=== PATIENT | female | born 1995 ===

== ENCOUNTER 2016-04-30 20:11 | Emergency (ER) | payer BC, MEDICAID ==
[2016-04-30 20:33] VITALS: BP 122/72
[2016-04-30] MEDS ORDERED: BSS OPTH.SOL* BTL ONE (22:01)
[2016-04-30] MEDS ORDERED: Fluorescein Sodium TOPICAL* 1 MG TEST ONE (22:01)
[2016-04-30] MEDS ORDERED: Tetracaine 0.5% OPTH.SOL 4 ML* 1 DROP BTL ONE (22:02)
[2016-04-30] MEDS ORDERED: Sulfamethox/Trimethoprim DS 800/160* TAB PO ONE (22:13)
[2016-04-30] MEDS ORDERED: Polymyx/Trimethoprim OPTH* 10 ML BTL LEFT EYE ONE (22:14)
--- NOTE | 2016-04-30 22:19 | UC ---
Eye Complaint HPI - HPI Summary HPI Summary: swelling of left eyelid, noticed a little blister on underside of lid. No injury. No URI symptoms. No contacts. - History of Current Complaint Chief Complaint: UCEye Stated Complaint: LEFT EYE Time Seen by Provider: 04/30/16 22:05 Hx Obtained From: Patient Hx Last Menstrual Period: 04/28/16 Onset/Duration: Gradual Onset, Lasting Days - 2 Timing: Constant Severity Initially: Mild Severity Currently: Mild Character: Dull, Throbbing Associated Signs And Symptoms: Positive: Swelling. Negative: Photophobia, Drainage (Clear), Drainage (Purulent), Vision Impairment Bilateral, Vision Impairment Right, Vision Impairment Left, Fever - Risk Factors Penetrating Injury Risk Factor: Negative Globe Rupture Risk Factors: Negative Acute Glaucoma Risk Factors: Negative Optic Artery Occlusion Risk Factors: Negative - Allergies/Home Medications Allergies/Adverse Reactions: Allergies Allergy/AdvReac Type Severity Reaction Status Date / Time No Known Allergies Allergy Verified 04/30/16 20:32 PMH/Surg Hx/FS Hx/Imm Hx Previously Healthy: Yes - Surgical History Surgical History: Yes Surgery Procedure, Year, and Place: left knee surgery - Family History Known Family History: Positive: None - Social History Occupation: Student Lives: Alone Alcohol Use: Occasionally Substance Use Type: None Smoking Status (MU): Never Smoked Tobacco Review of Systems Constitutional: Negative Skin: Negative Eyes: Eye Redness ENT: Negative Respiratory: Negative Cardiovascular: Negative Gastrointestinal: Negative Genitourinary: Negative Motor: Negative Neurovascular: Negative Musculoskeletal: Negative Neurological: Negative Psychological: Negative All Other Systems Reviewed And Are Negative: Yes Physical Exam Triage Information Reviewed: Yes Appearance: Well-Appearing, No Pain Distress, Well-Nourished, Thin Vital Signs: Initial Vital Signs Temp 98.4 F 04/30/16 20:26 Pulse 60 04/30/16 20:26 Resp 14 04/30/16 20:26 BP 122/72 04/30/16 20:26 Pulse Ox 99 04/30/16 20:26 Eyes: Positive: Conjunctiva Clear, Other: - left lateral eyelid red, swollen, tender. On underside of upper lid there is a pointing abscess. No drainage. Neck exam: Normal Respiratory Exam: Normal Cardiovascular Exam: Normal Abdominal Exam: Normal Musculoskeletal Exam: Normal Neurological Exam: Normal Neurological: Positive: Fatigued Skin Exam: Normal Eye Complaint Course/Dx - Differential Dx/Diagnosis Provider Diagnoses: stye Discharge - Discharge Plan Condition: Stable Disposition: HOME Prescriptions: Sulfamethox/Trimethoprim DS* [Bactrim DS 800/160 TAB*] 1 tab PO BID #14 tab Patient Education Materials: Jeff (ED) Referrals: Josey Jones MD [Primary Care Provider] - Additional Instructions: WArm compresses will help. Use the eyedrops four times a day for 5 days, and take the oral antibiotic ( Bactrim) for a week. This will resolve, but your eyelid may stay swollen for quite a while.
== END 2016-04-30 22:27 | disposition home or self-care (01) ==
LOC: UCCORT 20:11
DX: H00.016 Hordeolum externum left eye, unspecified eyelid (principal)
CPT/HCPCS: 99213; A9270-GY; G0463

== ENCOUNTER 2016-09-01 19:15 | Emergency (ER) | payer BC, MEDICAID ==
[2016-09-01 21:24] VITALS: BP 118/67
--- NOTE | 2016-09-01 21:38 | UC ---
Skin Complaint HPI - HPI Summary HPI Summary: has bug bites on arms and back after house and dog sitting, was at an outdoor fire the night before she noticed the bites as well - History of Current Complaint Chief Complaint: UCSkin Time Seen by Provider: 09/01/16 21:27 Stated Complaint: SKIN ISSUE Hx Obtained From: Patient Hx Last Menstrual Period: AUG 04 2016 ?: No Onset/Duration: Sudden Onset, Lasting Days Timing: Constant Onset Severity: Mild Current Severity: Mild Pain Intensity: 2 Pain Scale Used: 0-10 Numeric - mostly itches Location: Diffuse Character: Redness, Raised Aggravating: Nothing Alleviating: Nothing Associated Signs & Symptoms: Positive: Negative Related History: Insect Bite/Sting - Allergy/Home Medications Allergies/Adverse Reactions: Allergies Allergy/AdvReac Type Severity Reaction Status Date / Time No Known Allergies Allergy Verified 09/01/16 21:13 Review of Systems Constitutional: Negative Skin: Rash - individual red raised papula, no drainage Eyes: Negative ENT: Negative Respiratory: Negative Cardiovascular: Negative Gastrointestinal: Negative Genitourinary: Negative Motor: Negative Neurovascular: Negative Musculoskeletal: Negative Neurological: Negative Psychological: Negative All Other Systems Reviewed And Are Negative: Yes PMH/Surg Hx/FS Hx/Imm Hx Previously Healthy: Yes - Surgical History Surgical History: Yes Surgery Procedure, Year, and Place: left knee surgery - Family History Known Family History: Positive: None - Social History Occupation: Student Lives: With Family Alcohol Use: Occasionally Substance Use Type: None Smoking Status (MU): Never Smoked Tobacco Physical Exam Triage Information Reviewed: Yes Appearance: Well-Appearing, No Pain Distress, Well-Nourished Vital Signs: Initial Vital Signs Temp 98.3 F 09/01/16 21:14 Pulse 69 09/01/16 21:14 Resp 18 09/01/16 21:14 BP 118/67 09/01/16 21:14 Pulse Ox 100 09/01/16 21:14 Vital Signs Reviewed: Yes Eye Exam: Normal Eyes: Positive: Conjunctiva Clear ENT Exam: Normal ENT: Positive: Normal ENT inspection, Hearing grossly normal, Pharynx normal, TMs normal. Negative: Nasal congestion, Nasal drainage, Tonsillar swelling, Tonsillar exudate, Trismus, Muffled/hoarse voice Dental Exam: Normal Neck exam: Normal Neck: Positive: Supple, Nontender, No Lymphadenopathy Respiratory Exam: Normal Respiratory: Positive: Chest non-tender, Lungs clear, Normal breath sounds, No respiratory distress, No accessory muscle use Cardiovascular Exam: Normal Cardiovascular: Positive: RRR, No Murmur, Pulses Normal, Brisk Capillary Refill Musculoskeletal Exam: Normal Musculoskeletal: Positive: Strength Intact, ROM Intact, No Edema Neurological Exam: Normal Neurological: Positive: Alert, Muscle Tone Normal Psychological Exam: Normal Skin Exam: Normal - red raised papula Skin: Positive: rashes Course/Dx - Course Course Of Treatment: soap and water wash, steroid cream benadryl, follow with pcp prn - Differential Diagnoses - Skin Complaint Differential Diagnoses: Local Allergic Reaction, Poison Mellissa, Poison [place] - Diagnoses Provider Diagnoses: Localized reaction to insect bite Discharge - Discharge Plan Condition: Stable Disposition: HOME Prescriptions: Triamcinolone 0.1% CREAM(NF) [Kenalog Cream 0.1%(NF)] 1 applic TOPICAL TID #1 tube Patient Education Materials: Diphenhydramine (By mouth), Triamcinolone (On the skin), Insect Bite or Sting (ED) Referrals: Julius Callaway MD [Primary Care Provider] - If Needed
== END 2016-09-01 21:47 | disposition home or self-care (01) ==
LOC: UCCORT 19:15
DX: S40.862A Insect bite (nonvenomous) of left upper arm, initial encounter (principal); S40.861A Insect bite (nonvenomous) of right upper arm, initial encounter; S20.462A Insect bite (nonvenomous) of left back wall of thorax, initial encounter; W57.XXXA Bitten or stung by nonvenomous insect and other nonvenomous arthropods, initial encounter; Y93.9 Activity, unspecified; Y92.9 Unspecified place or not applicable
CPT/HCPCS: 99212; G0463

== ENCOUNTER 2019-02-21 11:47 | Emergency (ER) | payer BC, MEDICAID ==
[2019-02-21 13:16] VITALS: BP 104/66
--- NOTE | 2019-02-21 13:23 | UC ---
Nausea/Vomiting/Diarrhea HPI - HPI Summary HPI Summary: 24-year-old female who started vomiting yesterday. The last time she vomited was 3 AM today. She denies any diarrhea. Today she just complains more of body aches. She is retaining fluids. - History of Current Complaint Chief Complaint: UCRespiratory Stated Complaint: VOMITING,COUGH,BODY ACHES Time Seen by Provider: 02/21/19 13:22 Hx Obtained From: Patient Hx Last Menstrual Period: 02/06/19 ?: No Onset/Duration: Sudden Onset Timing: Intermittent Episodes Lasting: Severity Initially: Moderate Severity Currently: Mild Pain Intensity: 6 Location: Diffuse Character: Dull, Cramping Aggravating Factor(s): Movement Alleviating Factor(s): Nothing Nausea/Vomiting Presence: Nauseated, Vomiting - Nausea and vomiting have subsided with the last time being at 3 AM today. Diarrhea Presence: No - Allergies/Home Medications Allergies/Adverse Reactions: Allergies Allergy/AdvReac Type Severity Reaction Status Date / Time No Known Allergies Allergy Verified 02/21/19 13:11 Home Medications: Home Medications NK [No Home Medications Reported] 02/21/19 [History Confirmed 02/21/19] PMH/Surg Hx/FS Hx/Imm Hx Previously Healthy: Yes - Surgical History Surgical History: Yes Surgery Procedure, Year, and Place: left knee surgery - Family History Known Family History: Positive: None - Social History Occupation: Employed Full-time Lives: With Family Alcohol Use: Occasionally Substance Use Type: None Smoking Status (MU): Never Smoked Tobacco Review of Systems All Other Systems Reviewed And Are Negative: Yes Gastrointestinal: Positive: Abdominal Pain - Patient states she has generalized abdominal discomfort which she thinks is from vomiting so many times. She denies any specific point tenderness., Vomiting, Nausea Is Patient Immunocompromised?: No Physical Exam Triage Information Reviewed: Yes Appearance: Well-Appearing, No Pain Distress, Well-Nourished Vital Signs: Initial Vital Signs Temp 99 F 02/21/19 13:12 Pulse 94 02/21/19 13:12 Resp 16 02/21/19 13:12 BP 104/66 02/21/19 13:12 Pulse Ox 99 02/21/19 13:12 Vital Signs Reviewed: Yes Eyes: Positive: Conjunctiva Clear ENT: Positive: Pharynx normal, TMs normal, Uvula midline, Other - Mucous membranes are moist. Neck: Positive: Supple, Nontender, No Lymphadenopathy Respiratory: Positive: Lungs clear, Normal breath sounds, No respiratory distress, No accessory muscle use Cardiovascular: Positive: RRR, No Murmur, Pulses Normal, Brisk Capillary Refill Abdomen Description: Positive: No Organomegaly, Soft, Other: - Patient has mild generalized abdominal soreness however no specific area of tenderness. No rigidity, rebound or guarding.. Negative: CVA Tenderness (R), CVA Tenderness (L ), Distended, Guarding, Hepatomegaly, McBurney's Point Tenderness, Splenomegaly Bowel Sounds: Positive: Present Musculoskeletal Exam: Normal Neurological Exam: Normal Psychological Exam: Normal Skin Exam: Normal Naus/Vom/Diarrhea Course/Dx - Course Course Of Treatment: Patient is comfortable here. I believe more of her discomfort today is from the vomiting she was doing. She states that she has never had any gastrointestinal illness which involves vomiting to the point where she was vomiting. 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 I advised her to stay home over the next 2 days and increase fluids and if she has any change in her abdominal discomfort or develops any specific area of abdominal pain she is to go to the emergency room for further treatment. - Differential Dx/Diagnosis Provider Diagnosis: Vomiting Condition At Discharge: Good Discharge ED - Sign-Out/Discharge Documenting (check all that apply): Patient Departure All imaging exams completed and their final reports reviewed: No Studies - Discharge Plan Condition: Good Disposition: HOME Patient Education Materials: Acute Nausea and Vomiting (ED) Referrals: Julius Callaway MD [Primary Care Provider] - Additional Instructions: Clear liquids today, soup and crackers later today when you have no further vomiting then gradually increase to your regular diet. Avoid spicy or fatty foods today. Definite follow up with your primary care provider if no improvement in 1 day. Go to the ER if you feel like you are going to pass out or if you feel lightheaded or dizzy. If you have any worsening symptoms then go to the emergency room. - Billing Disposition and Condition Condition: GOOD Disposition: Home
== END 2019-02-21 13:35 | disposition home or self-care (01) ==
LOC: UCCORT 11:47
DX: R11.2 Nausea with vomiting, unspecified (principal); R10.84 Generalized abdominal pain
CPT/HCPCS: 99211; G0463